=== PATIENT | female | born 1945 | race Caucasian/White ===

== ENCOUNTER 2019-07-17 | Emergency (ER) | payer OTHER, MEDICARE ==
[2019-07-17] MEDS ORDERED: MONTELUKAST SOD10 MG PO (18:06)
[2019-07-17] MEDS ORDERED: FOLIC ACID1 M1 PO (18:06)
[2019-07-17] MEDS ORDERED: LEVOTHYROXIN75 MC1 PO (18:06)
[2019-07-17] MEDS ORDERED: ATORVASTATIN CA10 MG PO (18:06)
[2019-07-17] MEDS ORDERED: METOPROLOL100 M1 PO (18:07)
== END 2019-07-17 18:40 | disposition left against medical advice (07) | DRG 605 ==
DX: S80.11XA Contusion of right lower leg, initial encounter (principal); S40.011A Contusion of right shoulder, initial encounter; I10 Essential (primary) hypertension; V43.62XA Car passenger injured in collision with other type car in traffic accident, initial encounter; Z91.19 Patient's noncompliance with other medical treatment and regimen